=== PATIENT | female | born 1965 | race Caucasian/White ===

== ENCOUNTER 2022-04-02 06:26 | Inpatient (IN) | payer OTHER ==
[~2022-04-02] VITALS: Ht 157.5 cm; Wt 50.2 kg
[2022-04-02] VITALS (14 sets, daily range): BP systolic 103–134; BP diastolic 60–76
[2022-04-02] MEDS ORDERED: PROCHLORPERAZINE 10MG/2ML INJ ONE (06:40)
[2022-04-02] MEDS ORDERED: TAMSULOSIN HCL 0.4 MG CAP.ER.24H ONE (06:48)
[2022-04-02] MEDS ORDERED: KETOROLAC 30MG VIAL (30MG/ML) ONE (06:48)
[2022-04-02] MEDS ORDERED: PROCHLORPERAZINE 10MG/2ML INJ IV ONE (07:00)
[2022-04-02] MEDS ORDERED: KETOROLAC 15MG/ML VIAL (15MG/ML) IV ONE (07:00)
[2022-04-02] MEDS ORDERED: 0.9%NACL 1000ML 1,000 ML IV SCH (07:00)
[2022-04-02 07:04] LABS: BASOPHILS % (AUTO) 0.7 % (0.0-5.0); EOSINOPHILS % (AUTO) 0.3 % (0.0-8.0); HEMATOCRIT 42.5 % (36-48); LYMPHOCYTES % (AUTO) 4.6 % (21.0-51.0); MEAN CORPUSCULAR HEMOGLOBIN 31.9 pg (27.0-33.0); MEAN CORPUSCULAR HGB CONC 35.3 g/dL (32.0-36.0); MEAN CORPUSCULAR VOLUME 90.4 fL (79-99); NEUTROPHILS % (AUTO) 73.6 % (40.0-77.0); PLATELET COUNT (AUTO) 114 K/uL (130-400); RED CELL DISTRIBUTION WIDTH 12.5 % (11.0-15.5); WHITE BLOOD COUNT (AUTO) 15.1 K/uL (4.8-10.8)
[2022-04-02] MEDS ORDERED: ACETAMINOPHEN 500 MG TABLET PO STA (07:21)
[2022-04-02 07:42] LABS: ALBUMIN 3.7 g/dL (3.5-5.0); CREATININE 1.2 mg/dL (0.5-1.5)
[2022-04-02 07:47] LABS: TOTAL PROTEIN, SERUM 7.4 g/dL (6.0-8.3)
[2022-04-02 08:04] LABS: POTASSIUM 2.8 mmol/L (3.5-5.1)
[2022-04-02 08:20] LABS: APPEARANCE,URINE CLOUDY (CLEAR); BILIRUBIN,URINE NEGATIVE (NEGATIVE); COLOR,URINE YELLOW (YELLOW); GLUCOSE, URINE (UA) NEGATIVE (NEGATIVE); KETONES,URINE 10 mg/dL (NEGATIVE); LEUKOCYTE ESTERASE ,URINE 250 Leu/uL (NEGATIVE); NITRATE,URINE NEGATIVE (NEGATIVE); OCCULT BLOOD,URINE MODERATE (NEGATIVE); PH,URINE 5.5 (5.0-8.0); PROTEIN,URINE 200 mg/dL (NEGATIVE); UROBILINOGEN,URINE 0.2 mg/dL (0.2-1.0)
[2022-04-02] MEDS ORDERED: POTASSIUM CHLORIDE 20MEQ/100ML 100 ML IV ONE (08:23)
[2022-04-02] MEDS ORDERED: LIDOCAINE HCL 1% 20 ML VIAL ONE (08:24)
[2022-04-02 08:27] LABS: BACTERIA,URINE FEW /HPF (None Seen); MUCUS,URINE RARE LPF (None Seen); SQUAMOUS EPITHELIAL CELL,UR MANY /HPF (0-2); WBC,URINE 26-50 /HPF (0-1)
[2022-04-02] MEDS ORDERED: [UNRECOGNIZED DRUG - OTHER] IV SCH (08:30)
[2022-04-02] MEDS ORDERED: POTASSIUM CHLORIDE IV SCH (08:30)
[2022-04-02] MEDS ORDERED: POTASSIUM CHLORIDE 20MEQ/10ML 10 MEQ in 0.9%NACL 50ML 50 ML IV SCH ×4 (08:30)
[2022-04-02] MEDS ORDERED: POTASSIUM CHLORIDE 10MEQ/100ML 100 ML IV SCH (08:30)
[2022-04-02] MEDS ORDERED: 0.9%NACL 1000ML 2,000 ML IV SCH (08:30)
[2022-04-02] MEDS ORDERED: TAMS-1 PO (10:53)
[2022-04-02] MEDS ORDERED: DOCU-116 PO (10:53)
[2022-04-02] MEDS ORDERED: IBUP-1493 PO (10:53)
[2022-04-02] MEDS ORDERED: CEFTRIAXONE 1G VIAL IVP SCH (12:00)
[2022-04-02] MEDS ORDERED: VANCOMYCIN 1G VIAL IVPB ONE (12:00)
[2022-04-02] MEDS ORDERED: MEROPENEM 1 GM VIAL IVP SCH (12:30)
[2022-04-02] MEDS ORDERED: VANCOMYCIN 1G/250ML KIT 250 ML IV SCH (12:30)
[2022-04-02] MEDS ORDERED: PANTOPRAZOLE 40 MG/VIAL IVP SCH (13:00)
[2022-04-02] MEDS ORDERED: IPRATROPIUM 0.5 MG/2.5 ML INH IH PRN (13:00)
[2022-04-02 13:03] LABS: CREATININE 1.3 mg/dL (0.5-1.5); MAGNESIUM 1.5 mg/dL (1.80-2.40)
[2022-04-02 13:05] LABS: INR 0.93 (0.85-1.15); PROTHROMBIN TIME 9.8 SEC (9.6-11.6)
[2022-04-02 13:07] LABS: PARTIAL THROMBOPLASTIN TIME 28.4 SEC (26.3-35.5)
[2022-04-02] MEDS ORDERED: POTASSIUM CHLORIDE 20MEQ/100ML 100 ML IV PRN (13:30)
[2022-04-02] MEDS ORDERED: FENTANYL CITRATE PF 50 MCG/1 ML 2ML VIAL ONE (13:46)
[2022-04-02] MEDS ORDERED: IODIXANOL 320 MG/ML 100 ML VIAL ONE (13:46)
[2022-04-02] MEDS ORDERED: MIDAZOLAM HCL 1 MG/ML 2ML VIAL ONE (13:46)
[2022-04-02] MEDS ORDERED: LIDOCAINE HCL 1% MDV 50ML VIAL ONE (13:47)
[2022-04-02] MEDS: LACTATED RINGERS 1000ML 1,000 ML IV SCH ×2 (16:26→21:26)
[2022-04-02] MEDS: MAGNESIUM 2GM PREMIX 50ML 50 ML IV SCH (18:51)
[2022-04-02] MEDS ORDERED: ONDANSETRON 4MG INJ IVP PRN (20:00)
[2022-04-02 21:34] LABS: MAGNESIUM 2.4 mg/dL (1.80-2.40); POTASSIUM 3.4 mmol/L (3.5-5.1)
[2022-04-02] MEDS ORDERED: LIDOCAINE HCL-MPF 1% 2ML VIAL IV PRN (22:00)
[2022-04-02] MEDS ORDERED: POTASSIUM CHLORIDE 10% ELIXIR 20 MEQ/15 ML UDCUP PO PRN (22:00)
[2022-04-02] MEDS: KCL 20 MEQ ERTAB PO PRN (22:29)
[2022-04-03] VITALS (25 sets, daily range): BP systolic 106–147; BP diastolic 59–95
[2022-04-03] MEDS: KCL 20 MEQ ERTAB PO PRN ×3 (00:17→07:12)
[2022-04-03] MEDS: HYDROMORPHONE 0.5 MG SYG (0.5MG/0.5ML) IVP PRN ×2 (03:59→17:14)
[2022-04-03] MEDS ORDERED: MEROPENEM 1 GM VIAL IVP SCH ×2 (04:00→09:00)
[2022-04-03 04:26] LABS: BASOPHILS % (AUTO) 0.4 % (0.0-5.0); EOSINOPHILS % (AUTO) 0.4 % (0.0-8.0); LYMPHOCYTES % (AUTO) 10.7 % (21.0-51.0); MEAN CORPUSCULAR HEMOGLOBIN 32.4 pg (27.0-33.0); MEAN CORPUSCULAR HGB CONC 35.6 g/dL (32.0-36.0); MEAN CORPUSCULAR VOLUME 90.9 fL (79-99); MONOCYTES % (AUTO) 3.9 % (3.0-13.0); PLATELET COUNT (AUTO) 63 K/uL (130-400); RED BLOOD CELL COUNT(AUTO) 3.52 MIL/uL (4.00-5.50); RED CELL DISTRIBUTION WIDTH 13.2 % (11.0-15.5); WHITE BLOOD COUNT (AUTO) 18.8 K/uL (4.8-10.8)
[2022-04-03 04:40] LABS: ALBUMIN 2.3 g/dL (3.5-5.0); CREATININE 0.8 mg/dL (0.5-1.5); MAGNESIUM 2.3 mg/dL (1.80-2.40); POTASSIUM 3.8 mmol/L (3.5-5.1); TOTAL PROTEIN, SERUM 5.3 g/dL (6.0-8.3)
[2022-04-03 05:56] LABS: CRP QUANTITATIVE 260.1 mg/L (0.00-9.0)
[2022-04-03] MEDS: PANTOPRAZOLE 40 MG/VIAL IVP SCH (09:00)
[2022-04-03] MEDS ORDERED: DOCUSATE SODIUM 100 MG CAP PO PRN (10:00)
[2022-04-03] MEDS ORDERED: TAMSULOSIN HCL 0.4 MG CAP.ER.24H PO SCH (10:05)
[2022-04-03] MEDS: MEROPENEM 1 GM VIAL IVP SCH ×3 (10:24→21:55)
[2022-04-03] MEDS: NICOTINE 14 MG/ 24 HR PATCH TD SCH ×2 (10:30→11:40)
[2022-04-03] MEDS: LACTATED RINGERS 1000ML 1,000 ML IV SCH ×2 (11:39→20:14)
[2022-04-03] MEDS: ACETAMINOPHEN WITH CODEINE 1 TAB TAB PO PRN (11:48)
[2022-04-03 22:43] LABS: BASOPHILS % (AUTO) 0.4 % (0.0-5.0); EOSINOPHILS % (AUTO) 0.9 % (0.0-8.0); HEMATOCRIT 34.8 % (36-48); LYMPHOCYTES % (AUTO) 9.9 % (21.0-51.0); MEAN CORPUSCULAR HEMOGLOBIN 31.9 pg (27.0-33.0); MEAN CORPUSCULAR HGB CONC 35.1 g/dL (32.0-36.0); MEAN CORPUSCULAR VOLUME 91.1 fL (79-99); MONOCYTES % (AUTO) 7.9 % (3.0-13.0); NEUTROPHILS % (AUTO) 77.4 % (40.0-77.0); PLATELET COUNT (AUTO) 84 K/uL (130-400); RED BLOOD CELL COUNT(AUTO) 3.82 MIL/uL (4.00-5.50); RED CELL DISTRIBUTION WIDTH 13.7 % (11.0-15.5); WHITE BLOOD COUNT (AUTO) 23.8 K/uL (4.8-10.8)
[2022-04-03 22:46] LABS: AMPHET/METH SCREEN,URINE NEGATIVE (NEGATIVE); BARBITURATE SCREEN, URINE NEGATIVE (NEGATIVE); BENZODIAZEPINES SCREEN,URINE NEGATIVE (NEGATIVE); CANNABINOID SCREEN,URINE NEGATIVE (NEGATIVE); COCAINE SCREEN,URINE NEGATIVE (NEGATIVE); OPIATE SCREEN,URINE NEGATIVE (NEGATIVE); PHENCYCLIDINE SCREEN,URINE NEGATIVE (NEGATIVE)
[2022-04-03 22:59] LABS: CREATININE 0.8 mg/dL (0.5-1.5)
[2022-04-03 23:02] LABS: MAGNESIUM 1.8 mg/dL (1.80-2.40); PHOSPHORUS 1.3 mg/dL (2.5-4.9)
[2022-04-04] VITALS (9 sets, daily range): BP systolic 131–169; BP diastolic 76–105
[2022-04-04] MEDS ORDERED: VANCOMYCIN 1G/250ML KIT 250 ML IV ONE ×2 (00:50→01:00)
[2022-04-04] MEDS ORDERED: VANCOMYCIN 1G VIAL IVPB ONE (01:00)
[2022-04-04] MEDS ORDERED: VANCOMYCIN PROTOCOL PER PHARMACY IV SCH (01:00)
[2022-04-04] MEDS: MAGNESIUM 2GM PREMIX 50ML 50 ML IV SCH (01:02)
[2022-04-04] MEDS: HYDROMORPHONE 0.5 MG SYG (0.5MG/0.5ML) IVP PRN ×4 (02:00→21:37)
[2022-04-04] MEDS: FLUCONAZOLE 400 MG/NS 200 ML 200 ML IV SCH ×2 (03:47→08:37)
[2022-04-04] MEDS: LACTATED RINGERS 1000ML 1,000 ML IV SCH (03:50)
[2022-04-04 05:42] LABS: BASOPHILS % (AUTO) 0.5 % (0.0-5.0); EOSINOPHILS % (AUTO) 1.6 % (0.0-8.0); HEMATOCRIT 34.9 % (36-48); LYMPHOCYTES % (AUTO) 13.5 % (21.0-51.0); MEAN CORPUSCULAR HEMOGLOBIN 31.6 pg (27.0-33.0); MEAN CORPUSCULAR HGB CONC 33.8 g/dL (32.0-36.0); MEAN CORPUSCULAR VOLUME 93.3 fL (79-99); MONOCYTES % (AUTO) 7.9 % (3.0-13.0); NEUTROPHILS % (AUTO) 70.2 % (40.0-77.0); PLATELET COUNT (AUTO) 78 K/uL (130-400); RED BLOOD CELL COUNT(AUTO) 3.74 MIL/uL (4.00-5.50); RED CELL DISTRIBUTION WIDTH 13.6 % (11.0-15.5); WHITE BLOOD COUNT (AUTO) 21.9 K/uL (4.8-10.8)
[2022-04-04] MEDS: MEROPENEM 1 GM VIAL IVP SCH (06:04)
[2022-04-04 06:40] LABS: % IRON SATURATION 15.1 % (22-44)
[2022-04-04 06:56] LABS: CREATININE 0.7 mg/dL (0.5-1.5); CRP QUANTITATIVE 141.1 mg/L (0.00-9.0); MAGNESIUM 2.4 mg/dL (1.80-2.40); PHOSPHORUS 1.4 mg/dL (2.5-4.9); POTASSIUM 3.7 mmol/L (3.5-5.1); THYROID STIMULATING HORMONE 1.69 uIU/mL (0.36-3.74)
[2022-04-04] MEDS: PANTOPRAZOLE 40 MG/VIAL IVP SCH (08:37)
[2022-04-04] MEDS: NEUTRA-PHOS PACKET 1 EACH PO SCH ×3 (08:40→21:00)
[2022-04-04] MEDS: NICOTINE 14 MG/ 24 HR PATCH TD SCH ×2 (08:41→09:00)
[2022-04-04 11:04] LABS: ABG BASE EXCESS -1.4 mmol/L (-2.0-3.0); ABG HCO3 21.7 mmol/L (21.0-28.0); ABG OXYGEN SATURATION 96.2 % (95.0-99.0); ABG PCO2 32 mmHg (32-45)
[2022-04-04] MEDS ORDERED: LOSARTAN 25 MG TABLET PO ONE (12:00)
[2022-04-04] MEDS: CEFAZOLIN SODIUM 1 GM VIAL IVP SCH ×2 (13:05→20:52)
[2022-04-04] MEDS: AMLODIPINE 5 MG TAB PO SCH ×2 (13:05→20:51)
[2022-04-04] MEDS ORDERED: HYDROCHLOROTHIAZIDE 25 MG TABLET PO ONE (17:00)
[2022-04-04] MEDS ORDERED: LOSARTAN 50 MG TABLET PO ONE (17:00)
[2022-04-04] MEDS: TAMSULOSIN HCL 0.4 MG CAP.ER.24H PO SCH (20:51)
[2022-04-05 04:18] LABS: BASOPHILS % (AUTO) 0.6 % (0.0-5.0); EOSINOPHILS % (AUTO) 2.5 % (0.0-8.0); LYMPHOCYTES % (AUTO) 18.2 % (21.0-51.0); MEAN CORPUSCULAR HEMOGLOBIN 31.6 pg (27.0-33.0); MEAN CORPUSCULAR HGB CONC 34.5 g/dL (32.0-36.0); MEAN CORPUSCULAR VOLUME 91.6 fL (79-99); MONOCYTES % (AUTO) 9.8 % (3.0-13.0); NEUTROPHILS % (AUTO) 62.8 % (40.0-77.0); PLATELET COUNT (AUTO) 120 K/uL (130-400); RED BLOOD CELL COUNT(AUTO) 4.15 MIL/uL (4.00-5.50); RED CELL DISTRIBUTION WIDTH 13.2 % (11.0-15.5); WHITE BLOOD COUNT (AUTO) 17.9 K/uL (4.8-10.8)
[2022-04-05 04:23] VITALS: BP 149/85
[2022-04-05] MEDS: CEFAZOLIN SODIUM 1 GM VIAL IVP SCH ×3 (04:25→19:34)
[2022-04-05] MEDS: HYDROMORPHONE 0.5 MG SYG (0.5MG/0.5ML) IVP PRN ×2 (04:25→17:54)
[2022-04-05 04:28] LABS: CREATININE 0.7 mg/dL (0.5-1.5); POTASSIUM 3.2 mmol/L (3.5-5.1)
[2022-04-05] MEDS: KCL 20 MEQ ERTAB PO PRN ×3 (05:58→17:25)
[2022-04-05 08:00] VITALS: BP 154/92
[2022-04-05] MEDS ORDERED: LOSARTAN 25 MG TABLET PO SCH (09:00)
[2022-04-05] MEDS: FLUCONAZOLE 400 MG/NS 200 ML 200 ML IV SCH (09:44)
[2022-04-05] MEDS: PANTOPRAZOLE 40 MG/VIAL IVP SCH (09:44)
[2022-04-05] MEDS: LOSARTAN 25 MG TABLET PO SCH (09:45)
[2022-04-05] MEDS: HYDROCHLOROTHIAZIDE 25 MG TABLET PO SCH (09:45)
[2022-04-05] MEDS: AMLODIPINE 5 MG TAB PO SCH ×2 (09:45→19:34)
[2022-04-05 12:00] VITALS: BP 135/72
[2022-04-05] MEDS: NEUTRA-PHOS PACKET 1 EACH PO SCH ×3 (12:40→19:35)
[2022-04-05] MEDS ORDERED: BUPROPION HCL 150 MG TABLET.SA PO SCH (13:00)
[2022-04-05] MEDS ORDERED: LOPERAMIDE HCL 2 MG CAP PO ONE (13:30)
[2022-04-05 16:00] VITALS: BP 147/91
[2022-04-05] MEDS: TAMSULOSIN HCL 0.4 MG CAP.ER.24H PO SCH (19:34)
[2022-04-05 20:00] VITALS: BP 129/66
[2022-04-06] VITALS: BP 126/78
[2022-04-06] MEDS: HYDROMORPHONE 0.5 MG SYG (0.5MG/0.5ML) IVP PRN (00:21)
[2022-04-06 04:00] VITALS: BP 105/70
[2022-04-06] MEDS: CEFAZOLIN SODIUM 1 GM VIAL IVP SCH ×3 (04:58→20:58)
[2022-04-06 05:23] LABS: BASOPHILS % (AUTO) 0.8 % (0.0-5.0); EOSINOPHILS % (AUTO) 1.7 % (0.0-8.0); HEMATOCRIT 39.3 % (36-48); LYMPHOCYTES % (AUTO) 19.8 % (21.0-51.0); MEAN CORPUSCULAR HEMOGLOBIN 31.4 pg (27.0-33.0); MEAN CORPUSCULAR HGB CONC 33.8 g/dL (32.0-36.0); MEAN CORPUSCULAR VOLUME 92.9 fL (79-99); MONOCYTES % (AUTO) 8.1 % (3.0-13.0); NUCLEATED RED BLOOD CELLS 0.1 % (0.0-0.19); PLATELET COUNT (AUTO) 179 K/uL (130-400); RED BLOOD CELL COUNT(AUTO) 4.23 MIL/uL (4.00-5.50); RED CELL DISTRIBUTION WIDTH 13.2 % (11.0-15.5); WHITE BLOOD COUNT (AUTO) 19.8 K/uL (4.8-10.8)
[2022-04-06 05:51] LABS: CREATININE 0.8 mg/dL (0.5-1.5); CRP QUANTITATIVE 80.9 mg/L (0.00-9.0); MAGNESIUM 1.5 mg/dL (1.80-2.40); PHOSPHORUS 4.5 mg/dL (2.5-4.9); POTASSIUM 3.9 mmol/L (3.5-5.1)
[2022-04-06] MEDS ORDERED: MAGNESIUM 2GM PREMIX 50ML 50 ML IV ONE (06:10)
[2022-04-06] MEDS: MAGNESIUM 2GM PREMIX 50ML 50 ML IV SCH (06:18)
[2022-04-06 08:00] VITALS: BP 121/79
[2022-04-06] MEDS: AMLODIPINE 5 MG TAB PO SCH ×2 (08:29→19:51)
[2022-04-06] MEDS: FLUCONAZOLE 400 MG/NS 200 ML 200 ML IV SCH (08:29)
[2022-04-06] MEDS: PANTOPRAZOLE 40 MG/VIAL IVP SCH (08:29)
[2022-04-06] MEDS: LOSARTAN 25 MG TABLET PO SCH (08:30)
[2022-04-06] MEDS: HYDROCHLOROTHIAZIDE 25 MG TABLET PO SCH (08:30)
[2022-04-06] MEDS ORDERED: BUPROPION HCL 150 MG TABLET.SA PO SCH (09:00)
[2022-04-06] MEDS: MEROPENEM 1 GM VIAL IVPB SCH ×2 (11:38→19:51)
[2022-04-06 12:00] VITALS: BP 138/83
[2022-04-06 16:00] VITALS: BP 117/73
[2022-04-06] MEDS: TAMSULOSIN HCL 0.4 MG CAP.ER.24H PO SCH (19:51)
[2022-04-06] MEDS: MAGNESIUM CHLORIDE 64 MG TABLET.SA PO SCH (19:51)
[2022-04-06] MEDS: ACETAMINOPHEN 500 MG TABLET PO PRN (19:57)
[2022-04-06 20:00] VITALS: BP 121/77
[2022-04-07] VITALS (7 sets, daily range): BP systolic 104–119; BP diastolic 68–75
[2022-04-07] MEDS: MEROPENEM 1 GM VIAL IVPB SCH ×2 (02:51→12:25)
[2022-04-07] MEDS: CEFAZOLIN SODIUM 1 GM VIAL IVP SCH (04:17)
[2022-04-07] MEDS: MAGNESIUM CHLORIDE 64 MG TABLET.SA PO SCH ×2 (07:52→19:54)
[2022-04-07] MEDS: FLUCONAZOLE 400 MG/NS 200 ML 200 ML IV SCH (07:52)
[2022-04-07] MEDS: LOSARTAN 25 MG TABLET PO SCH (07:52)
[2022-04-07] MEDS: AMLODIPINE 5 MG TAB PO SCH ×2 (07:53→19:54)
[2022-04-07] MEDS: PANTOPRAZOLE 40 MG TAB DR PO SCH (07:53)
[2022-04-07] MEDS: HYDROCHLOROTHIAZIDE 25 MG TABLET PO SCH (07:53)
[2022-04-07 11:59] LABS: BASOPHILS % (AUTO) 0.8 % (0.0-5.0); EOSINOPHILS % (AUTO) 1.3 % (0.0-8.0); HEMATOCRIT 41.1 % (36-48); MEAN CORPUSCULAR HEMOGLOBIN 31.7 pg (27.0-33.0); MEAN CORPUSCULAR HGB CONC 33.6 g/dL (32.0-36.0); MEAN CORPUSCULAR VOLUME 94.3 fL (79-99); MONOCYTES % (AUTO) 5.3 % (3.0-13.0); NEUTROPHILS % (AUTO) 59.7 % (40.0-77.0); PLATELET COUNT (AUTO) 317 K/uL (130-400); RED BLOOD CELL COUNT(AUTO) 4.36 MIL/uL (4.00-5.50); RED CELL DISTRIBUTION WIDTH 13.5 % (11.0-15.5); WHITE BLOOD COUNT (AUTO) 19.9 K/uL (4.8-10.8)
[2022-04-07] MEDS ORDERED: BISACODYL 5 MG TABLET.DR PO PRN (12:00)
[2022-04-07] MEDS ORDERED: HYDROMORPHONE 0.5 MG SYG (0.5MG/0.5ML) IVP PRN (12:00)
[2022-04-07] MEDS ORDERED: ONDANSETRON ODT 4MG TAB SL PRN (12:00)
[2022-04-07] MEDS ORDERED: ACETAMINOPHEN WITH CODEINE 1 TAB TAB PO PRN (12:00)
[2022-04-07 12:23] LABS: CREATININE 0.8 mg/dL (0.5-1.5); CRP QUANTITATIVE 40.4 mg/L (0.00-9.0); MAGNESIUM 1.7 mg/dL (1.80-2.40); PHOSPHORUS 3.2 mg/dL (2.5-4.9); POTASSIUM 3.6 mmol/L (3.5-5.1)
[2022-04-07] MEDS ORDERED: VANCOMYCIN 1G/250ML KIT 250 ML IV SCH (12:30)
[2022-04-07] MEDS ORDERED: VANCOMYCIN PROTOCOL PER PHARMACY IV PRN (12:30)
[2022-04-07 13:14] LABS: ERYTHROCYTE SEDIMENTATION RATE 64 MM/HR (0-30)
[2022-04-07] MEDS: CEFTRIAXONE 2GM VIAL IVPB SCH (14:13)
[2022-04-07] MEDS: TAMSULOSIN HCL 0.4 MG CAP.ER.24H PO SCH (19:54)
[2022-04-07] MEDS ORDERED: VANCOMYCIN 750MG VIAL IVPB SCH (21:00)
[2022-04-08 04:28] VITALS: BP 119/54
[2022-04-08 05:16] LABS: BASOPHILS % (AUTO) 1.1 % (0.0-5.0); EOSINOPHILS % (AUTO) 1.9 % (0.0-8.0); HEMATOCRIT 41.4 % (36-48); LYMPHOCYTES % (AUTO) 24.8 % (21.0-51.0); MEAN CORPUSCULAR HEMOGLOBIN 31.4 pg (27.0-33.0); MEAN CORPUSCULAR HGB CONC 33.8 g/dL (32.0-36.0); MEAN CORPUSCULAR VOLUME 92.8 fL (79-99); MONOCYTES % (AUTO) 6.2 % (3.0-13.0); NEUTROPHILS % (AUTO) 53.4 % (40.0-77.0); PLATELET COUNT (AUTO) 381 K/uL (130-400); RED BLOOD CELL COUNT(AUTO) 4.46 MIL/uL (4.00-5.50); RED CELL DISTRIBUTION WIDTH 13.4 % (11.0-15.5); WHITE BLOOD COUNT (AUTO) 17.2 K/uL (4.8-10.8)
[2022-04-08 05:39] LABS: CREATININE 0.9 mg/dL (0.5-1.5); CRP QUANTITATIVE 30.8 mg/L (0.00-9.0); MAGNESIUM 1.6 mg/dL (1.80-2.40); PHOSPHORUS 2.8 mg/dL (2.5-4.9); POTASSIUM 4.4 mmol/L (3.5-5.1)
[2022-04-08 06:56] LABS: ERYTHROCYTE SEDIMENTATION RATE 67 MM/HR (0-30)
[2022-04-08 08:00] VITALS: BP 113/70
[2022-04-08] MEDS ORDERED: ACETAMINOPHEN 325 MG TAB ONE (08:08)
[2022-04-08] MEDS: AMLODIPINE 5 MG TAB PO SCH ×2 (08:15→20:42)
[2022-04-08] MEDS: MAGNESIUM CHLORIDE 64 MG TABLET.SA PO SCH ×2 (08:15→20:42)
[2022-04-08] MEDS: LOSARTAN 25 MG TABLET PO SCH (08:15)
[2022-04-08] MEDS: PANTOPRAZOLE 40 MG TAB DR PO SCH (08:15)
[2022-04-08] MEDS: FLUCONAZOLE 400 MG/NS 200 ML 200 ML IV SCH (08:15)
[2022-04-08 12:00] VITALS: BP 104/65
[2022-04-08] MEDS: CEFTRIAXONE 2GM VIAL IVPB SCH (12:32)
[2022-04-08] MEDS ORDERED: MAGNESIUM 2GM PREMIX 50ML 50 ML IV ONE (14:58)
[2022-04-08 16:00] VITALS: BP 104/58
[2022-04-08] MEDS: ACETAMINOPHEN 500 MG TABLET PO PRN (17:15)
[2022-04-08 19:59] VITALS: BP 123/71
[2022-04-08] MEDS: TAMSULOSIN HCL 0.4 MG CAP.ER.24H PO SCH (20:42)
[2022-04-08] MEDS: ACETAMINOPHEN WITH CODEINE 1 TAB TAB PO PRN (21:20)
[2022-04-08 23:08] VITALS: BP 100/58
[2022-04-09 04:17] VITALS: BP 121/63
[2022-04-09 05:06] LABS: BASOPHILS % (AUTO) 0.9 % (0.0-5.0); EOSINOPHILS % (AUTO) 1.9 % (0.0-8.0); HEMATOCRIT 39.5 % (36-48); LYMPHOCYTES % (AUTO) 24.5 % (21.0-51.0); MEAN CORPUSCULAR HEMOGLOBIN 31.8 pg (27.0-33.0); MEAN CORPUSCULAR HGB CONC 34.2 g/dL (32.0-36.0); MEAN CORPUSCULAR VOLUME 92.9 fL (79-99); MONOCYTES % (AUTO) 6.7 % (3.0-13.0); NEUTROPHILS % (AUTO) 56.1 % (40.0-77.0); PLATELET COUNT (AUTO) 372 K/uL (130-400); RED BLOOD CELL COUNT(AUTO) 4.25 MIL/uL (4.00-5.50); RED CELL DISTRIBUTION WIDTH 13.3 % (11.0-15.5)
[2022-04-09 05:31] LABS: CREATININE 0.8 mg/dL (0.5-1.5); CRP QUANTITATIVE 13.9 mg/L (0.00-9.0); POTASSIUM 4.3 mmol/L (3.5-5.1)
[2022-04-09 06:23] LABS: ERYTHROCYTE SEDIMENTATION RATE 65 MM/HR (0-30)
[2022-04-09 08:00] VITALS: BP 119/72
[2022-04-09] MEDS: FLUCONAZOLE 400 MG/NS 200 ML 200 ML IV SCH (09:35)
[2022-04-09] MEDS: PANTOPRAZOLE 40 MG TAB DR PO SCH (09:36)
[2022-04-09] MEDS: LOSARTAN 25 MG TABLET PO SCH (09:36)
[2022-04-09] MEDS: MAGNESIUM CHLORIDE 64 MG TABLET.SA PO SCH ×2 (09:36→20:04)
[2022-04-09] MEDS: AMLODIPINE 5 MG TAB PO SCH ×2 (09:36→20:04)
[2022-04-09 11:58] VITALS: BP 112/60
[2022-04-09] MEDS: CEFTRIAXONE 2GM VIAL IVPB SCH (13:54)
[2022-04-09 15:43] VITALS: BP 115/65
[2022-04-09 19:30] VITALS: BP 118/66
[2022-04-09] MEDS: TAMSULOSIN HCL 0.4 MG CAP.ER.24H PO SCH (20:04)
[2022-04-10] VITALS: BP 111/59
[2022-04-10 05:10] LABS: BASOPHILS % (AUTO) 0.9 % (0.0-5.0); EOSINOPHILS % (AUTO) 2.2 % (0.0-8.0); HEMATOCRIT 39.2 % (36-48); LYMPHOCYTES % (AUTO) 27.9 % (21.0-51.0); MEAN CORPUSCULAR HEMOGLOBIN 31.4 pg (27.0-33.0); MEAN CORPUSCULAR HGB CONC 32.7 g/dL (32.0-36.0); MEAN CORPUSCULAR VOLUME 96.1 fL (79-99); MONOCYTES % (AUTO) 5.7 % (3.0-13.0); NEUTROPHILS % (AUTO) 57.8 % (40.0-77.0); PLATELET COUNT (AUTO) 445 K/uL (130-400); RED BLOOD CELL COUNT(AUTO) 4.08 MIL/uL (4.00-5.50); RED CELL DISTRIBUTION WIDTH 13.1 % (11.0-15.5); WHITE BLOOD COUNT (AUTO) 13.5 K/uL (4.8-10.8)
[2022-04-10 05:35] LABS: CREATININE 0.8 mg/dL (0.5-1.5); CRP QUANTITATIVE 9.1 mg/L (0.00-9.0); POTASSIUM 4.5 mmol/L (3.5-5.1)
[2022-04-10 06:59] LABS: ERYTHROCYTE SEDIMENTATION RATE 62 MM/HR (0-30)
[2022-04-10 08:00] VITALS: BP 131/72
[2022-04-10] MEDS: PANTOPRAZOLE 40 MG TAB DR PO SCH (09:42)
[2022-04-10] MEDS: FLUCONAZOLE 400 MG/NS 200 ML 200 ML IV SCH (09:42)
[2022-04-10] MEDS: AMLODIPINE 5 MG TAB PO SCH ×2 (09:42→20:03)
[2022-04-10] MEDS: LOSARTAN 25 MG TABLET PO SCH (09:42)
[2022-04-10] MEDS: MAGNESIUM CHLORIDE 64 MG TABLET.SA PO SCH ×2 (09:43→20:03)
[2022-04-10 12:00] VITALS: BP 106/59
[2022-04-10] MEDS: CEFTRIAXONE 2GM VIAL IVPB SCH (14:14)
[2022-04-10 16:00] VITALS: BP 116/56
[2022-04-10] MEDS: TAMSULOSIN HCL 0.4 MG CAP.ER.24H PO SCH (20:03)
[2022-04-10 20:30] VITALS: BP 125/75
[2022-04-10 21:45] VITALS: BP 108/50
[2022-04-11 00:15] VITALS: BP 119/64
[2022-04-11 04:01] VITALS: BP 107/59
[2022-04-11 05:03] LABS: BASOPHILS % (AUTO) 0.8 % (0.0-5.0); EOSINOPHILS % (AUTO) 2.3 % (0.0-8.0); HEMATOCRIT 40.9 % (36-48); LYMPHOCYTES % (AUTO) 34.2 % (21.0-51.0); MEAN CORPUSCULAR HEMOGLOBIN 31.5 pg (27.0-33.0); MEAN CORPUSCULAR HGB CONC 32.8 g/dL (32.0-36.0); MEAN CORPUSCULAR VOLUME 96.2 fL (79-99); MONOCYTES % (AUTO) 5.8 % (3.0-13.0); NEUTROPHILS % (AUTO) 53.2 % (40.0-77.0); PLATELET COUNT (AUTO) 531 K/uL (130-400); RED BLOOD CELL COUNT(AUTO) 4.25 MIL/uL (4.00-5.50); RED CELL DISTRIBUTION WIDTH 12.9 % (11.0-15.5); WHITE BLOOD COUNT (AUTO) 12.7 K/uL (4.8-10.8)
[2022-04-11 05:06] LABS: CREATININE 0.8 mg/dL (0.5-1.5); CRP QUANTITATIVE 6.5 mg/L (0.00-9.0); POTASSIUM 4.1 mmol/L (3.5-5.1)
[2022-04-11 05:59] LABS: ERYTHROCYTE SEDIMENTATION RATE 62 MM/HR (0-30)
[2022-04-11 08:00] VITALS: BP 115/68
[2022-04-11] MEDS: FLUCONAZOLE 400 MG/NS 200 ML 200 ML IV SCH (09:13)
[2022-04-11] MEDS: AMLODIPINE 5 MG TAB PO SCH (09:13)
[2022-04-11] MEDS: PANTOPRAZOLE 40 MG TAB DR PO SCH (09:13)
[2022-04-11] MEDS: LOSARTAN 25 MG TABLET PO SCH (09:13)
[2022-04-11] MEDS: MAGNESIUM CHLORIDE 64 MG TABLET.SA PO SCH (09:13)
[2022-04-11] MEDS ORDERED: AMLO5TAB4 PO (10:54)
[2022-04-11] MEDS ORDERED: LOSA25TA2 PO (10:54)
[2022-04-11 12:00] VITALS: BP 115/69
== END 2022-04-11 15:20 | disposition home or self-care (01) | DRG 871 ==
LOC: EDH 06:26 → EDHIP 06:27 → 2BH 14:36 → 4DH 04-04 01:45
PROVIDERS: ADMIT Internal Medicine; ATTEND Internal Medicine
PROC: 0T9330Z Drainage of Right Kidney Pelvis with Drainage Device, Percutaneous Approach (ICD-10-PCS; principal; 2022-04-02)
DX: A41.9 Sepsis, unspecified organism (principal); U07.1 COVID-19; N17.9 Acute kidney failure, unspecified; E87.1 Hypo-osmolality and hyponatremia; N13.6 Pyonephrosis; N20.2 Calculus of kidney with calculus of ureter; Z16.29 Resistance to other single specified antibiotic; R65.20 Severe sepsis without septic shock; D69.6 Thrombocytopenia, unspecified; R59.9 Enlarged lymph nodes, unspecified; E86.0 Dehydration; E86.1 Hypovolemia; B96.20 Unspecified Escherichia coli [E. coli] as the cause of diseases classified elsewhere; D64.89 Other specified anemias; E11.9 Type 2 diabetes mellitus without complications; E78.00 Pure hypercholesterolemia, unspecified; E83.42 Hypomagnesemia; E87.6 Hypokalemia; F17.210 Nicotine dependence, cigarettes, uncomplicated; I10 Essential (primary) hypertension; K42.9 Umbilical hernia without obstruction or gangrene; Z79.899 Other long term (current) drug therapy; Z82.49 Family history of ischemic heart disease and other diseases of the circulatory system; Z87.440 Personal history of urinary (tract) infections; Z87.442 Personal history of urinary calculi; Z93.6 Other artificial openings of urinary tract status
CPT/HCPCS: 36415; 36600; 50432; 71045; 74176; 75989; 76705; 80048; 80053; 80202; 80305; 81001; 82607; 82746; 82803; 83540; 83550; 83605; 83735; 83880; 84100; 84132; 84145; 84443; 85025; 85610; 85651; 85730; 86140; 86850; 86900; 86901; 87040; 87071; 87077; 87088; 87186; 87205; 87635; 87804; 93306; 93356; 94664; 96365; 96366; 96367; 96375; 99156; C1729; C1894; C9113; G0378; J0690; J0696; J0780; J1170; J1450; J1644; J1885; J2185; J2250; J3010; J3370; J3475; J3480; J3490; J7030; J7120; Q9967

== ENCOUNTER 2022-04-22 14:00 | Emergency (ER) | payer OTHER ==
[~2022-04-22] VITALS: Ht 157.5 cm; Wt 51.7 kg
[~2022-04-22 14:00] MED LIST: AMLO5TAB4 PO; DOCU-116 PO; LOSA25TA2 PO; TAMS-1 PO
[2022-04-22] MEDS ORDERED: 0.9%NACL 1000ML 1,000 ML IV ONE (15:00)
[2022-04-22] MEDS ORDERED: ONDANSETRON 4MG INJ IVP ONE (15:00)
[2022-04-22] MEDS ORDERED: KETOROLAC 15MG/ML VIAL (15MG/ML) IV ONE ×2 (15:00→18:00)
[2022-04-22 15:16] LABS: BASOPHILS % (AUTO) 0.7 % (0.0-5.0); EOSINOPHILS % (AUTO) 6.5 % (0.0-8.0); HEMATOCRIT 37.8 % (36-48); LYMPHOCYTES % (AUTO) 31.1 % (21.0-51.0); MEAN CORPUSCULAR HEMOGLOBIN 31.7 pg (27.0-33.0); MEAN CORPUSCULAR HGB CONC 34.1 g/dL (32.0-36.0); MEAN CORPUSCULAR VOLUME 92.9 fL (79-99); NEUTROPHILS % (AUTO) 55.4 % (40.0-77.0); PLATELET COUNT (AUTO) 382 K/uL (130-400); RED BLOOD CELL COUNT(AUTO) 4.07 MIL/uL (4.00-5.50); WHITE BLOOD COUNT (AUTO) 10.6 K/uL (4.8-10.8)
[2022-04-22 15:19] LABS: APPEARANCE,URINE CLOUDY (CLEAR); BILIRUBIN,URINE NEGATIVE (NEGATIVE); COLOR,URINE LIGHT-YELLOW (YELLOW); GLUCOSE, URINE (UA) NEGATIVE (NEGATIVE); KETONES,URINE NEGATIVE (NEGATIVE); LEUKOCYTE ESTERASE ,URINE NEGATIVE Leu/uL (NEGATIVE); NITRATE,URINE NEGATIVE (NEGATIVE); OCCULT BLOOD,URINE NEGATIVE (NEGATIVE); PH,URINE 7.5 (5.0-8.0); PROTEIN,URINE NEGATIVE (NEGATIVE); UROBILINOGEN,URINE 0.2 mg/dL (0.2-1.0)
[2022-04-22] MEDS ORDERED: IOHEXOL 350 MG/ML 100ML INFUS..BTL IV ONE (15:19)
[2022-04-22 15:28] LABS: CREATININE 0.5 mg/dL (0.5-1.5)
[2022-04-22 15:29] LABS: SQUAMOUS EPITHELIAL CELL,UR RARE /HPF (0-2)
[2022-04-22 15:32] LABS: ALBUMIN 3.7 g/dL (3.5-5.0); TOTAL PROTEIN, SERUM 7.4 g/dL (6.0-8.3)
[2022-04-22 17:35] VITALS: BP 113/67
== END 2022-04-22 17:55 | disposition home or self-care (01) ==
LOC: EDH 14:00
DX: N20.1 Calculus of ureter (principal); N20.2 Calculus of kidney with calculus of ureter; I10 Essential (primary) hypertension; E11.9 Type 2 diabetes mellitus without complications; E78.00 Pure hypercholesterolemia, unspecified; F17.200 Nicotine dependence, unspecified, uncomplicated; Z79.899 Other long term (current) drug therapy; Z98.890 Other specified postprocedural states
CPT/HCPCS: 99285; 74177; 96374; 96375; 80053; 85025; 83605; 81001; 36415; 96376; J2405; J1885 ×2; Q9967